=== PATIENT | female | born 1960 | race Caucasian/White ===

== ENCOUNTER → 2016-12-22 | Outpatient (CLI) | payer MEDICAID | END | disposition home or self-care (01) | LOC: CFH 14:44 | PROVIDERS: ATTEND Nurse Practitioner Family | DX: Z12.31 Encounter for screening mammogram for malignant neoplasm of breast (principal) | CPT/HCPCS: G0202 ==

== ENCOUNTER → 2017-11-23 | Outpatient (CLI) | payer MEDICAID ==
[~2017-11-23] MED LIST: LEVO125T5 PO; PRAV40TA2 PO; SOTA120T26 PO; WARF-36 PO; WARF7.5T46 PO
== END | disposition home or self-care (01) ==
LOC: STAR 13:54
PROVIDERS: ATTEND Obstetrics & Gynecology Female Pelvic Medicine and Reconstructive Surgery
DX: Z01.818 Encounter for other preprocedural examination (principal); R94.31 Abnormal electrocardiogram [ECG] [EKG]; N84.0 Polyp of corpus uteri; N95.0 Postmenopausal bleeding
CPT/HCPCS: 93005

== ENCOUNTER 2018-01-16 07:42 | Day surgery (SDC) | payer MEDICAID ==
[~2018-01-16] VITALS: Ht 167.6 cm; Wt 106.0 kg
[~2018-01-16 07:42] MED LIST changes: +BUPIVACAINE 0.25% ONE; +EPINEPHRINE 1 MG/ML, 1ML ONE
[2018-01-16] MEDS ORDERED: LACTATED RINGERS 1,000 ML IV SCH (08:12)
[2018-01-16] MEDS ORDERED: ACETAMINOPHEN 500 MG TABLET PO ONE (08:30)
[2018-01-16] MEDS ORDERED: LIDOCAINE-MPF 1%, 2ML INFIL ONE (08:30)
[2018-01-16] MEDS ORDERED: GABAPENTIN 300 MG CAPSULE PO ONE (08:30)
[2018-01-16 09:10] VITALS: BP 137/93
[2018-01-16] MEDS ORDERED: MIDAZOLAM 1 MG/ML, 2ML ONE (09:10)
[2018-01-16] MEDS ORDERED: lovenox SQ (09:10)
[2018-01-16] MEDS ORDERED: FENTANYL PF 250 MCG/5ML ONE (09:10)
[2018-01-16 09:15] LABS: INTERNATIONAL NORMALIZED RATIO 1.07 (0.93-1.1); PROTHROMBIN TIME 11.1 Seconds (9.6-11.5)
[2018-01-16 09:17] LABS: ALBUMIN 3.9 g/dL (3.4-5.0); ANION GAP 7 mmol/L (5-15); CALCIUM 8.9 mg/dL (8.5-10.1); CHLORIDE 105 mmol/L (98-107)
[2018-01-16 09:21] LABS: ALANINE AMINOTRANSFERASE 28 U/L (12-78); ALKALINE PHOSPHATASE 122 U/L (45-117); BILIRUBIN,TOTAL 0.9 mg/dL (0.2-1.0); CREATININE 0.79 mg/dL (0.55-1.02); TOTAL PROTEIN 7.9 g/dL (6.4-8.2)
[2018-01-16] MEDS ORDERED: HYDROmorphone 1 MG/ML, 1ML IV PRN (09:30)
[2018-01-16] MEDS ORDERED: LABETALOL 5MG/ML, 20ML IV PRN (09:30)
[2018-01-16] MEDS ORDERED: ONDANSETRON 2MG/ML, 2ML IV PRN (09:30)
[2018-01-16] MEDS ORDERED: DIPHENHYDRAMINE 50 MG/ML, 1ML IVPush PRN (09:30)
[2018-01-16] MEDS ORDERED: OXYcodone 5 MG/5 ML ORAL.SOL UDC PO PRN (09:30)
[2018-01-16] MEDS ORDERED: hydrALAzine 20 MG/ML, 1ML IV PRN (09:30)
[2018-01-16] MEDS ORDERED: SCOPOLAMINE PATCH, 1.5MG PATCH.TD72 TD ONE (10:09)
[2018-01-16] MEDS ORDERED: DEXAMETHASONE 4 MG/ML, 1ML ONE ×2 (10:20→11:20)
[2018-01-16] MEDS ORDERED: SUCCINYLCHOLINE 20 MG/ML, 10ML ONE (11:20)
[2018-01-16] MEDS ORDERED: PROPOFOL 10 MG/ML, 20ML ONE (11:20)
[2018-01-16] MEDS ORDERED: ROCURONIUM 10MG/ML,5ML ONE (11:20)
[2018-01-16] MEDS ORDERED: CEFAZOLIN 1,000 MG ONE (11:20)
[2018-01-16] MEDS ORDERED: ONDANSETRON 2MG/ML, 2ML ONE (11:20)
[2018-01-16] MEDS ORDERED: NEOSTIGMINE 1 MG/ML, 10ML ONE (11:20)
[2018-01-16] MEDS ORDERED: GLYCOPYRROLATE 0.2MG/1ML, 5ML ONE (11:20)
[2018-01-16] MEDS ORDERED: OXYcodone 5 MG/5 ML ORAL.SOL UDC ONE (11:39)
[2018-01-16] MEDS ORDERED: FENTANYL PF 100 MCG/2ML ONE (11:39)
[2018-01-16] MEDS: FENTANYL PF 100 MCG/2ML IV PRN ×3 (11:46→12:21)
[2018-01-16] MEDS ORDERED: NEOMY/POLYMYXIN B GU IRR. 1 ML IRRIG ONE (13:55)
== END 2018-01-16 15:42 | disposition home or self-care (01) ==
LOC: OUT 07:42
PROVIDERS: ATTEND Obstetrics & Gynecology Female Pelvic Medicine and Reconstructive Surgery
DX: D25.9 Leiomyoma of uterus, unspecified (principal); N95.0 Postmenopausal bleeding; N84.0 Polyp of corpus uteri; N83.8 Other noninflammatory disorders of ovary, fallopian tube and broad ligament; N39.3 Stress incontinence (female) (male); Z98.890 Other specified postprocedural states; Z79.899 Other long term (current) drug therapy
CPT/HCPCS: 36415; 58661; 80053; 85610; 85730; 88307; 93005; J0171; J0330; J0690; J1100; J2250; J2405; J2704; J2710; J3010; J3490; J7120

== ENCOUNTER 2018-01-26 21:30 | Inpatient (IN) | payer MEDICAID ==
[~2018-01-26] VITALS: Ht 167.6 cm; Wt 103.2 kg
[~2018-01-26 21:30] MED LIST changes: -BUPIVACAINE 0.25% ONE; -EPINEPHRINE 1 MG/ML, 1ML ONE; +lovenox SQ
[2018-01-26] MEDS ORDERED: METOPROLOL 1 MG/ML, 5ML IVPush ONE ×2 (22:00→23:30)
[2018-01-26] MEDS ORDERED: SOTALOL 120MG TABLET PO SCH (22:00)
[2018-01-26] MEDS ORDERED: SOTALOL 120MG TABLET PO ONE (22:00)
[2018-01-26] MEDS ORDERED: SODIUM CHLORIDE 0.9% 1,000ML IVBOLUS ONE (22:00)
[2018-01-26 22:15] LABS: BASOPHILS # (AUTO) 0.06 x10^3/uL (0-0.1); BASOPHILS % (AUTO) 1 % (0-1); EOSINOPHILS # (AUTO) 0.19 x10^3/uL (0-0.4); EOSINOPHILS % (AUTO) 2 % (1-7); LYMPHOCYTES # (AUTO) 1.25 x10^3/uL (1-3.4); LYMPHOCYTES % (AUTO) 13 % (22-44); MD NO; MEAN CORPUSCULAR HEMOGLOBIN 27.9 pg (27.0-34.8); MEAN CORPUSCULAR HGB CONC 32.7 g/dL (32.4-35.8); MEAN CORPUSCULAR VOLUME 85.2 fL (80-100); MEAN PLATELET VOLUME 8.5 fL (7.4-10.4); MONOCYTES % (AUTO) 7 % (2-9); NEUTROPHILS # (AUTO) 7.26 x10^3/uL (1.8-6.8); NEUTROPHILS % (AUTO) 77 % (42-75); PLATELET COUNT 225 x10^3/uL (130-400); RED BLOOD COUNT 4.77 x10^6/uL (3.82-5.3); RED CELL DISTRIBUTION WIDTH 16.8 % (9.6-15.2)
[2018-01-26] MEDS ORDERED: METOPROLOL 1 MG/ML, 5ML ONE ×2 (22:15→22:46)
[2018-01-26 22:29] LABS: ALBUMIN 3.6 g/dL (3.4-5.0); ANION GAP 5 mmol/L (5-15); CALCIUM 8.8 mg/dL (8.5-10.1); CHLORIDE 107 mmol/L (98-107); CREATININE 0.85 mg/dL (0.55-1.02)
[2018-01-26 22:33] LABS: TROPONIN I < 0.015 ng/mL (0.000-0.045)
[2018-01-26 22:50] LABS: INTERNATIONAL NORMALIZED RATIO 3.99 (0.93-1.1)
[2018-01-26] MEDS ORDERED: METOPROLOL 1 MG/ML, 5ML IVPush SCH (23:00)
[2018-01-27] MEDS ORDERED: LABETALOL 250 MG in SODIUM CHLORIDE 0.9% 200 ML IV PRN (00:30)
[2018-01-27] MEDS ORDERED: METOPROLOL 1 MG/ML, 5ML ONE (00:56)
[2018-01-27] MEDS ORDERED: LORazepam 2 MG/ML, 1ML ONE (01:18)
[2018-01-27] MEDS ORDERED: LORazepam 2 MG/ML, 1ML IVPush PRN (01:30)
[2018-01-27 01:52] VITALS: BP 115/88
[2018-01-27] MEDS ORDERED: ACETAMINOPHEN 325 MG TABLET PO PRN (02:00)
[2018-01-27] MEDS ORDERED: morphine SULFATE 10 MG/ML, 1ML IVPush PRN (02:00)
[2018-01-27] MEDS ORDERED: POLYETHYLENE GLYCOL 17 GM PACKET PO PRN (02:00)
[2018-01-27] MEDS ORDERED: BISACODYL 10 MG SUPP PR PRN (02:00)
[2018-01-27] MEDS ORDERED: ONDANSETRON 2MG/ML, 2ML IVPush PRN (02:00)
[2018-01-27] MEDS ORDERED: PROMETHAZINE 25 MG/ML, 1ML IM PRN (02:00)
[2018-01-27] MEDS ORDERED: LABETALOL 5MG/ML, 20ML IVPush PRN (02:00)
[2018-01-27] MEDS ORDERED: OXYcodone IR 5MG TABLET PO PRN (02:00)
[2018-01-27] MEDS ORDERED: hydrALAzine 20 MG/ML, 1ML IVPush PRN (02:00)
[2018-01-27] MEDS ORDERED: ONDANSETRON ODT 4 MG PO PRN (02:00)
[2018-01-27] MEDS ORDERED: DOCUSATE 100 MG CAPSULE PO PRN (02:00)
[2018-01-27 02:30] LABS: FREE T4 (FREE THYROXINE) 1.22 ng/dL (0.76-1.46); THYROID STIMULATING HORMONE 2.88 mIU/L (0.358-3.740)
[2018-01-27] MEDS: DILTIAZEM 125 MG in SODIUM CHLORIDE 0.9% 100 ML IV PRN ×2 (02:32→23:12)
[2018-01-27 02:37] LABS: HEMOGLOBIN A1C 6.1 % (4.2-6.3)
[2018-01-27 02:56] VITALS: BP 123/83
[2018-01-27] MEDS: SODIUM CHLORIDE 0.9% 1,000 ML IV SCH ×2 (03:15→18:14)
[2018-01-27 03:55] VITALS: BP 122/85
[2018-01-27] MEDS: LEVOTHYROXINE 125 MCG TABLET PO SCH (05:06)
[2018-01-27 06:11] LABS: CHLORIDE 108 mmol/L (98-107); TROPONIN I < 0.015 ng/mL (0.000-0.045)
[2018-01-27 06:19] LABS: BASOPHILS # (AUTO) 0.02 x10^3/uL (0-0.1); BASOPHILS % (AUTO) 0 % (0-1); EOSINOPHILS # (AUTO) 0.12 x10^3/uL (0-0.4); EOSINOPHILS % (AUTO) 2 % (1-7); LYMPHOCYTES % (AUTO) 14 % (22-44); MD NO; MEAN CORPUSCULAR HEMOGLOBIN 27.9 pg (27.0-34.8); MEAN CORPUSCULAR HGB CONC 32.6 g/dL (32.4-35.8); MEAN CORPUSCULAR VOLUME 85.6 fL (80-100); MEAN PLATELET VOLUME 8.6 fL (7.4-10.4); MONOCYTES % (AUTO) 8 % (2-9); NEUTROPHILS # (AUTO) 5.57 x10^3/uL (1.8-6.8); NEUTROPHILS % (AUTO) 76 % (42-75); PLATELET COUNT 196 x10^3/uL (130-400); RED BLOOD COUNT 4.39 x10^6/uL (3.82-5.3); RED CELL DISTRIBUTION WIDTH 16.8 % (9.6-15.2)
[2018-01-27 06:23] LABS: ALANINE AMINOTRANSFERASE 35 U/L (12-78); ALBUMIN 3.2 g/dL (3.4-5.0); ALKALINE PHOSPHATASE 104 U/L (45-117); ANION GAP 9 mmol/L (5-15); BILIRUBIN,TOTAL 0.6 mg/dL (0.2-1.0); CALCIUM 7.9 mg/dL (8.5-10.1); CHOL/HDL RATIO 3.2; CHOLESTEROL, TOTAL 139 mg/dL (140-239); CREATININE 0.63 mg/dL (0.55-1.02); HDL CHOL % 31 % (28-40); HDL CHOLESTEROL (DIRECT) 43 mg/dL (40-60); LDL CHOLESTEROL,CALCULATED 68 mg/dL (54-169); LDL/HDL RATIO 1.6 (0.5-3.0); TOTAL PROTEIN 6.5 g/dL (6.4-8.2); TRIGLYCERIDES 142 mg/dL (50-200); VLDL CHOLESTEROL 28 mg/dL (0-25)
[2018-01-27 06:37] VITALS: BP 127/72
[2018-01-27 07:49] LABS: INTERNATIONAL NORMALIZED RATIO 2.85 (0.93-1.1); PROTHROMBIN TIME 28.8 Seconds (9.6-11.5)
[2018-01-27] MEDS: SOTALOL 120MG TABLET PO SCH ×2 (08:37→20:03)
[2018-01-27] MEDS ORDERED: POTASSIUM CHLORIDE 20 MEQ TAB.ER.PRT PO ONE (09:00)
[2018-01-27 12:40] LABS: TROPONIN I < 0.015 ng/mL (0.000-0.045)
[2018-01-27 13:00] LABS: MICROSCOPIC INDICATED
[2018-01-27 13:01] LABS: CULTURE INDICATED? YES
[2018-01-27 14:08] VITALS: BP 124/88
[2018-01-27 19:38] VITALS: BP 115/77
[2018-01-27] MEDS ORDERED: PRAVASTATIN 40 MG TABLET PO SCH (21:00)
[2018-01-28 02:50] VITALS: BP 125/82
[2018-01-28] MEDS: LEVOTHYROXINE 125 MCG TABLET PO SCH (05:45)
[2018-01-28 05:49] LABS: ANION GAP 5 mmol/L (5-15); CALCIUM 8.5 mg/dL (8.5-10.1); CHLORIDE 110 mmol/L (98-107)
[2018-01-28 05:49] LABS: BASOPHILS # (AUTO) 0.04 x10^3/uL (0-0.1); BASOPHILS % (AUTO) 1 % (0-1); EOSINOPHILS # (AUTO) 0.15 x10^3/uL (0-0.4); EOSINOPHILS % (AUTO) 2 % (1-7); LYMPHOCYTES # (AUTO) 1.06 x10^3/uL (1-3.4); LYMPHOCYTES % (AUTO) 16 % (22-44); MD NO; MEAN CORPUSCULAR HGB CONC 32.5 g/dL (32.4-35.8); MEAN CORPUSCULAR VOLUME 86.1 fL (80-100); MEAN PLATELET VOLUME 8.1 fL (7.4-10.4); MONOCYTES # (AUTO) 0.57 x10^3/uL (0.2-0.8); MONOCYTES % (AUTO) 9 % (2-9); NEUTROPHILS # (AUTO) 4.85 x10^3/uL (1.8-6.8); NEUTROPHILS % (AUTO) 73 % (42-75); PLATELET COUNT 208 x10^3/uL (130-400); RED BLOOD COUNT 4.45 x10^6/uL (3.82-5.3)
[2018-01-28 07:34] VITALS: BP 103/71
[2018-01-28] MEDS: SOTALOL 120MG TABLET PO SCH (08:11)
[2018-01-28] MEDS: DILTIAZEM 30 MG TABLET PO SCH ×2 (08:11→10:31)
[2018-01-28 13:16] VITALS: BP 133/91
[2018-01-28] MEDS ORDERED: DILT120C9 PO (15:57)
[2018-01-28] MEDS ORDERED: DILTIAZEM 120 MG CAP.ER.24H PO SCH (16:00)
[2018-01-28] MEDS ORDERED: CEFD300C37 PO (16:14)
== END 2018-01-28 18:54 | disposition home or self-care (01) | DRG 760 ==
LOC: ED 23:26 → 5SO 01-27 02:07
PROVIDERS: ADMIT Internal Medicine; ATTEND Internal Medicine
DX: N93.9 Abnormal uterine and vaginal bleeding, unspecified (principal); D68.69 Other thrombophilia; I48.2 Chronic atrial fibrillation; E03.9 Hypothyroidism, unspecified; I49.3 Ventricular premature depolarization; E78.5 Hyperlipidemia, unspecified; M19.90 Unspecified osteoarthritis, unspecified site; Z96.649 Presence of unspecified artificial hip joint; Z96.659 Presence of unspecified artificial knee joint; B95.4 Other streptococcus as the cause of diseases classified elsewhere; E87.6 Hypokalemia; Z79.01 Long term (current) use of anticoagulants; Z90.710 Acquired absence of both cervix and uterus; Z95.2 Presence of prosthetic heart valve; Z90.721 Acquired absence of ovaries, unilateral; Z79.899 Other long term (current) drug therapy
CPT/HCPCS: 36415; 80048; 80053; 80061; 81001; 82040; 83036; 84439; 84443; 84484; 85014; 85018; 85025; 85610; 86850; 86900; 87086; 87147; 93005; 93306; 96361; 96374; 96375; 96376; J2060; J7030

== ENCOUNTER 2019-01-02 15:31 | Outpatient (CLI) | payer MEDICAID ==
[~2019-01-02 15:31] MED LIST changes: +CEFD300C37 PO; +DILT120C9 PO
== END 2019-01-02 23:59 | disposition home or self-care (01) ==
LOC: CFH 15:31
PROVIDERS: ATTEND Nurse Practitioner Family
DX: Z12.31 Encounter for screening mammogram for malignant neoplasm of breast (principal)
CPT/HCPCS: 77067